=== PATIENT | male | born 1950 | race Caucasian/White ===

== ENCOUNTER 2021-09-06 16:13 | Inpatient (IN) | payer MEDICARE ==
[2021-09-06 16:51] VITALS: BMI 33.5
[2021-09-06] MEDS ORDERED: FLU VACC QS2021-22(65YR UP)/PF 240 MCG/0.7 ML SYRINGE IM ONE (18:30)
[2021-09-06 18:31] LABS: Troponin I 0.018 ng/mL (< 0.028)
[2021-09-06 21:18] LABS: Troponin I 0.014 ng/mL (< 0.028)
[2021-09-06] MEDS ORDERED: Nitroglycerin 0.4 MG TAB (25 Tab Bottle) SL PRN (22:15)
[2021-09-06] MEDS ORDERED: Nitroglycerin 0.4 MG TAB (25 Tab Bottle) ONE (22:16)
[2021-09-06] MEDS: Nitroglycerin 2% Ointment 1 INCH/1 GM Packet TOP SCH (22:16)
[2021-09-06] MEDS ORDERED: Nitroglycerin 2% Ointment 1 INCH/1 GM Packet ONE (22:17)
[2021-09-06] MEDS ORDERED: Metoprolol Tartrate 5 MG/5 ML VIAL IVP SCH (22:30)
[2021-09-06] MEDS ORDERED: Sodium Chloride 0.9% 1,000 ML IV SCH (23:00)
[2021-09-06] MEDS ORDERED: Enoxaparin Sodium 100 MG/ML SYRINGE SC SCH (23:00)
[2021-09-07 00:09] LABS: Magnesium 1.8 mg/dL (1.6-2.6)
[2021-09-07 00:14] LABS: Troponin I 0.018 ng/mL (< 0.028)
[2021-09-07 04:47] LABS: #Monocytes 0.4 10x3/uL (0.0-1.1); #Neutrophils 7.2 10x3/uL (1.5-8.4); %Basophils 0.1 % (0.0-2.0); %Lymphocytes 12.2 % (18.0-47.0); %Monocytes 4.6 % (0.0-10.0); %Neutrophils 82.6 % (40.0-75.0); Hemoglobin 12.5 g/dL (13.5-17.5); Mean Corpuscular HGB CONC 32.4 g/dL (32.0-36.0); Mean Corpuscular Hemoglobin 29.6 pg (27.0-33.0); Mean Corpuscular Volume 91.3 fl (81.2-95.1); Mean Platelet Volume 9.9 fl (7.4-10.4); Platelet Count 254 10x3/uL (150-450); RBC Distribution Width 13.2 % (11.5-14.5); Red Blood Cell (RBC) Count 4.23 10x6/uL (4.32-5.72); White Blood Cell (WBC) Count 8.7 10x3/uL (3.5-10.5)
[2021-09-07 05:16] LABS: Anion Gap 12 mmol/L (10-20); BUN (Urea Nitrogen) 11 mg/dL (8.4-25.7); Calc. Creatinine Clearance 123 mL/min (70-130); Calcium 8.8 mg/dL (7.8-10.44); Carbon Dioxide 25 mmol/L (23-31); Cardiac Risk 4.1 (Less than 4.5); Chloride 106 mmol/L (98-107); Cholesterol 147 mg/dl (< 200 Desired); Glucose 146 mg/dL (83-110); HDL Cholesterol 36 mg/dL (>60 Neg Risk); LDL Cholesterol, Calculated 100 mg/dL; Potassium 4.6 mmol/L (3.5-5.1); Sodium 138 mmol/L (136-145); Triglycerides 54 mg/dL (Less than 150)
[2021-09-07] MEDS: Nitroglycerin 2% Ointment 1 INCH/1 GM Packet TOP SCH ×3 (05:54→18:40)
[2021-09-07] MEDS: Aspirin Chewable 81 MG TAB PO SCH (05:54)
[2021-09-07] MEDS ORDERED: Nitroglycerin 50 MG/250 ML BOT 250 ML ONE (07:59)
[2021-09-07] MEDS ORDERED: Lidocaine 1% (PF) 30 ML VIAL ONE (07:59)
[2021-09-07] MEDS ORDERED: Heparin 10,000 UNITS/ 10 ML VIAL ONE (07:59)
[2021-09-07] MEDS ORDERED: Adenosine 6 MG/2 ML VIAL ONE (07:59)
[2021-09-07] MEDS ORDERED: Bivalirudin 250 MG VIAL ONE (08:00)
[2021-09-07] MEDS ORDERED: Enoxaparin Sodium 40 MG/0.4 ML SYRINGE SC SCH (09:00)
[2021-09-07] MEDS ORDERED: Aspirin Chewable 81 MG TAB PO SCH (09:00)
[2021-09-07] MEDS ORDERED: Verapamil 5 MG/2 ML VIAL ONE (11:01)
[2021-09-07] MEDS ORDERED: Fentanyl 100 MCG/2 ML VIAL ONE (11:01)
[2021-09-07] MEDS ORDERED: Midazolam HCl 2 mg/2 ml Vial ONE (11:02)
[2021-09-07] MEDS ORDERED: Atropine Sulfate 0.4 mg/1 ml Vial ONE (11:37)
[2021-09-07] MEDS ORDERED: Nitroglycerin 0.4 MG TAB (25 Tab Bottle) SL PRN (11:54)
[2021-09-07] MEDS ORDERED: Acetaminophen/Codeine 30-300mg Tablet PO PRN ×2 (11:54)
[2021-09-07] MEDS ORDERED: Sodium Chloride 0.9% 200 ML IV PRN (11:54)
[2021-09-07] MEDS ORDERED: Sodium Chloride 0.9% 1,000 ML IV SCH (12:00)
[2021-09-07] MEDS ORDERED: Atorvastatin Calcium 40 MG TAB PO SCH (21:00)
[2021-09-08] MEDS: Nitroglycerin 2% Ointment 1 INCH/1 GM Packet TOP SCH ×3 (00:15→10:22)
[2021-09-08 03:41] LABS: #Eosinphils 0.2 10x3/uL (0.0-0.5); #Monocytes 0.7 10x3/uL (0.0-1.1); #Neutrophils 6.6 10x3/uL (1.5-8.4); %Basophils 0.2 % (0.0-2.0); %Eosinophils 1.6 % (0.0-6.0); %Monocytes 6.8 % (0.0-10.0); %Neutrophils 65.2 % (40.0-75.0); Hemoglobin 12.3 g/dL (13.5-17.5); Mean Corpuscular HGB CONC 32.5 g/dL (32.0-36.0); Mean Corpuscular Hemoglobin 29.1 pg (27.0-33.0); Mean Corpuscular Volume 89.4 fl (81.2-95.1); Mean Platelet Volume 9.8 fl (7.4-10.4); Platelet Count 273 10x3/uL (150-450); RBC Distribution Width 13.6 % (11.5-14.5); Red Blood Cell (RBC) Count 4.23 10x6/uL (4.32-5.72); White Blood Cell (WBC) Count 10.1 10x3/uL (3.5-10.5)
[2021-09-08 03:50] LABS: Anion Gap 11 mmol/L (10-20); BUN (Urea Nitrogen) 9 mg/dL (8.4-25.7); Calc. Creatinine Clearance 126 mL/min (70-130); Calcium 8.5 mg/dL (7.8-10.44); Carbon Dioxide 24 mmol/L (23-31); Chloride 108 mmol/L (98-107); Glucose 100 mg/dL (83-110); Potassium 3.7 mmol/L (3.5-5.1); Sodium 139 mmol/L (136-145)
[2021-09-08] MEDS: Aspirin Chewable 81 MG TAB PO SCH (08:10)
[2021-09-08 08:44] VITALS: TEMP 98.5
[2021-09-08 11:18] VITALS: BP 156/68
== END 2021-09-08 11:45 | disposition home or self-care (01) | DRG 287 ==
LOC: CSHTELE 16:13 → INTOOBSV 16:13 → OBSVTOIN 22:55
PROVIDERS: ADMIT Hospitalist; ATTEND Hospitalist
PROC: 4A023N7 Measurement of Cardiac Sampling and Pressure, Left Heart, Percutaneous Approach (ICD-10-PCS; principal; 2021-09-07)
PROC: B3101ZZ Fluoroscopy of Thoracic Aorta using Low Osmolar Contrast (ICD-10-PCS; 2021-09-07)
DX: I25.110 Atherosclerotic heart disease of native coronary artery with unstable angina pectoris (principal); F17.210 Nicotine dependence, cigarettes, uncomplicated; M19.90 Unspecified osteoarthritis, unspecified site; I10 Essential (primary) hypertension; M10.9 Gout, unspecified; I35.0 Nonrheumatic aortic (valve) stenosis; Z71.6 Tobacco abuse counseling; Z98.1 Arthrodesis status; Z98.890 Other specified postprocedural states
CPT/HCPCS: 36415; 71046; 80048; 80061; 83735; 85025; 90471; 90662; 93005; 93010; 93306; 93458; 96372; 96374; 99152; 99153; G0008; G0378; J0153; J0461; J0583; J1644; J1650; J2001; J2250; J3010; J7050

== ENCOUNTER 2023-05-18 12:22 | Outpatient (CLI) | payer MEDICARE, MEDICAID | END 2023-05-18 12:23 | disposition home or self-care (01) | LOC: CSHRAD 12:22 | PROVIDERS: ATTEND Family Medicine | DX: M75.01 Adhesive capsulitis of right shoulder (principal); M25.552 Pain in left hip; M25.551 Pain in right hip; M25.811 Other specified joint disorders, right shoulder; M89.8X8 Other specified disorders of bone, other site; M16.12 Unilateral primary osteoarthritis, left hip | CPT/HCPCS: 73521 ==

== ENCOUNTER 2025-04-17 12:41 | Outpatient (CLI) | payer OTHER | END 2025-04-17 12:42 | disposition home or self-care (01) | LOC: CSHWCC 12:41 | PROVIDERS: ATTEND Nurse Practitioner Family | DX: I87.331 Chronic venous hypertension (idiopathic) with ulcer and inflammation of right lower extremity (principal); L97.811 Non-pressure chronic ulcer of other part of right lower leg limited to breakdown of skin; I25.810 Atherosclerosis of coronary artery bypass graft(s) without angina pectoris; I87.2 Venous insufficiency (chronic) (peripheral) | CPT/HCPCS: 97597; G0463; 99213 ==

== ENCOUNTER 2025-04-24 14:36 | Outpatient (CLI) | payer OTHER | END 2025-04-24 14:37 | disposition home or self-care (01) | LOC: CSHWCC 14:36 | PROVIDERS: ATTEND Nurse Practitioner Family | DX: I87.331 Chronic venous hypertension (idiopathic) with ulcer and inflammation of right lower extremity (principal); L97.811 Non-pressure chronic ulcer of other part of right lower leg limited to breakdown of skin; I25.810 Atherosclerosis of coronary artery bypass graft(s) without angina pectoris; I87.2 Venous insufficiency (chronic) (peripheral) | CPT/HCPCS: 99212; G0463 ==

== ENCOUNTER 2025-05-08 11:31 | Outpatient (CLI) | payer OTHER | END 2025-05-08 11:32 | disposition home or self-care (01) | LOC: CSHWCC 11:31 | PROVIDERS: ATTEND Nurse Practitioner Family | DX: I87.331 Chronic venous hypertension (idiopathic) with ulcer and inflammation of right lower extremity (principal); L97.811 Non-pressure chronic ulcer of other part of right lower leg limited to breakdown of skin; I25.810 Atherosclerosis of coronary artery bypass graft(s) without angina pectoris; I87.2 Venous insufficiency (chronic) (peripheral) | CPT/HCPCS: 99212; G0463 ==